=== PATIENT | female | born 1970 | race Caucasian/White ===

== ENCOUNTER → 2021-07-02 14:52 | Outpatient (CLI) | payer BC, SELFPAY ==
--- NOTE | ~2021-07-02 | MM_ITS ---
EXAMINATION: MM screening [facility] BI w saurabh HISTORY: Screening TECHNIQUE: Craniocaudal and mediolateral oblique 3-D tomosynthesis images were obtained and synthetic 2-D images were generated. CAD analysis was submitted and interpreted. COMPARISON: Comparison to multiple prior studies sequentially, with oldest reviewed study dated 11/2013. BREAST PARENCHYMAL COMPOSITION: There are scattered areas of fibroglandular density. FINDINGS: There is no evidence of suspicious mass, calcification, or architectural distortion to sugg est malignancy in either breast. There has been no suspicious interval change. IMPRESSION: 1. No mammographic evidence of malignancy. 2. Recommend routine screening mammography in one year. BI-RADS Category 1: Negative Reviewed, dictated and finalized at location A.
== END ==
PROVIDERS: PCP Nurse Practitioner Family; Visit Provider Obstetrics & Gynecology Gynecology
DX: Z12.31 Encounter for screening mammogram for malignant neoplasm of breast (principal)
CPT/HCPCS: 77063; 77067

== ENCOUNTER → 2021-08-10 08:49 | Outpatient (CLI) | payer BC, SELFPAY ==
--- NOTE | ~2021-08-10 | XR_ITS ---
EXAMINATION: XR chest 2V DATE: 08/10/2021 09:43 INDICATION: Shortness of breath TECHNIQUE: PA and lateral views of the chest are obtained. COMPARISON: None available FINDINGS: The lungs are free of acute opacities. There is no pleural effusion or pneumothorax. The ca rdiomediastinal silhouette is normal. There is mild thoracic spondylosis. IMPRESSION: 1. No acute cardiopulmonary abnormality. Reviewed, dictated and finalized at location A. UTIVE CHEF ASSISTANT
== END ==
PROVIDERS: PCP Nurse Practitioner Family; Visit Provider Nurse Practitioner Family
DX: R06.00 Dyspnea, unspecified (principal)
CPT/HCPCS: 71046

== ENCOUNTER → 2022-04-01 11:43 | Outpatient (CLI) | payer BC, SELFPAY ==
--- NOTE | ~2022-04-01 | CT_ITS ---
EXAMINATION: CT sinus wo con DATE: 04/01/2022 11:59 INDICATION: Chronic sinusitis TECHNIQUE: Computed tomography (CT) of the paranasal sinuses was performed without contrast. Iterativ e reconstruction technique was employed. Exam dose: 256.12 mGy-cm total exam DLP. COMPARISON: None FINDINGS: Very slight leftward bowing of the nasal septum. The nasal turbinates are prominent but symmetric in size. Bilateral intralamellar cell of the middle nasal turbinates. The ostiomeatal units are patent bilaterally. Minimal soft tissue thickening along the lower anterior wall of the right maxillary sinus. The paranasal sinuses are otherwise normally developed and aerate d. The mastoid air cells are well-developed and aerated bilaterally, just a few left mastoid air cells w ith fluid. IMPRESSION: Slight leftward bowing of nasal septum Prominent nasal turbinates; bilateral intralamellar cell of middle nasal turbinates Minimal new comparison thickening at the lower anterior wall of the right maxillary sinus Effusions of a very small minority of left mastoid air cells Reviewed, dictated and finalized at Location A. Reviewed, dictated and finalized at location B. IMPRESSION: Slight leftward bowing of nasal septum Prominent nasal turbinates; bilateral intralamellar cell of middle nasal turbin ates Minimal new comparison thickening at the lower anterior wall of the right maxil taty sinus Effusions of a very small minority of left mastoid air cells
== END ==
PROVIDERS: PCP Nurse Practitioner Family; Visit Provider Allergy & Immunology
DX: J32.9 Chronic sinusitis, unspecified (principal); J34.2 Deviated nasal septum; J34.3 Hypertrophy of nasal turbinates; H74.8X2 Other specified disorders of left middle ear and mastoid
CPT/HCPCS: 70486

== ENCOUNTER 2023-02-11 08:16 | Outpatient (CLI) | payer BC, SELFPAY ==
--- NOTE | 2023-02-11 08:46 | ECG_ITS ---
Measurements Intervals [place] Rate: 82 P: 31 OH: 174 QRS: 41 QRSD: 94 T: 37 QT: 355 QTc: 416 Interpretive Statements SINUS RHYTHM NO PREVIOUS ECG AVAILABLE FOR COMPARISON Electronically Signed On 02-11-2023 14:58:40 CDT by Anisha Rodriguez M.D.
[2023-02-11 09:03] LABS: Basophils Absolute Auto 0.1 K/mm3 (0.0-0.1); Basophils Percent Auto 0.8 % (0.2-1.2); Eosinophils Absolute Auto 0.1 K/mm3 (0-0.3); Eosinophils Percent Auto 0.7 % (0-4.4); Hematocrit 44.7 % (37.0-47.0); Hemoglobin 14.5 g/dL (12.0-15.0); Immature Granulocyte Absolute 0.03 K/mm3 (0.00-0.031); Immature Granulocyte Percent A 0.4 % (0-0.5); Lymphocytes Absolute Auto 1.39 K/mm3 (0.9-3.2); Lymphocytes Percent Auto 19.2 % (18.3-44.2); Mean Corpuscular HGB Conc 32.4 g/dl (32-36); Mean Corpuscular Hemoglobin 30.4 pg (26-34); Mean Corpuscular Volume 93.7 fl (80-100); Mean Platelet Volume 8.9 fl (7.4-10.4); Monocytes Absolute Auto 0.6 K/mm3 (0.1-0.6); Monocytes Percent Auto 8.6 % (2.6-8.5); Neutrophils Absolute Auto 5.1 K/mm3 (1.3-6.7); Neutrophils Percent Auto 70.3 % (45.5-73.1); Platelet Count Result 320 k/mm3 (150-375); Red Blood Count 4.77 M/mm3 (4.2-5.4); Red Cell Distribution Width 12.1 % (11.5-14.5); White Blood Count 7.3 K/mm3 (4.5-10.0)
[2023-02-11 09:17] LABS: Iron 102 ug/dL (37-170)
[2023-02-11 09:19] LABS: Alanine Aminotransferase 29 U/L (6-35); Albumin Level 4.3 g/dL (3.5-5.1); Alkaline Phosphatase 89 U/L (38-126); Anion Gap 4 mmol/L (8-16); Aspartate Amino Transferase 25 U/L (14-36); Bilirubin,Total 0.6 mg/dL (0.2-1.3); Blood Urea Nitrogen 11 mg/dL (7-17); Calcium 8.9 mg/dL (8.4-10.2); Carbon Dioxide 32 mmol/L (22-30); Chloride 100 mmol/L (98-107); Estimated Glomerular Filt Rate > 60; Glucose 89 mg/dL (65-110); Sodium 136 mmol/L (137-145)
[2023-02-11 09:47] LABS: Thyroid Stimulating Hormone Reflex 0.783 uIU/mL (0.465-4.68)
[2023-02-11 10:20] LABS: Folic Acid > 20.0 ng/mL (2.76->20)
== END 2023-02-11 08:17 | disposition home or self-care (01) ==
LOC: ANHLAB 08:20
PROVIDERS: PCP Nurse Practitioner Family; Visit Provider Nurse Practitioner Family
DX: F90.2 Attention-deficit hyperactivity disorder, combined type (principal); F41.1 Generalized anxiety disorder
CPT/HCPCS: 36415; 80053; 82607; 82746; 83540; 84443; 85025; 93005

== ENCOUNTER 2023-04-25 12:43 | Outpatient (CLI) | payer BC, SELFPAY ==
--- NOTE | ~2023-04-25 | CT_ITS ---
EXAMINATION: CT abdomen pelvis wo con DATE: 04/25/2023 13:16 INDICATION: Hematuria, intermittent right flank pain TECHNIQUE: Computed tomography (CT) of the abdomen and pelvis was performed without intravenous contr ast. Automated exposure control and iterative reconstruction technique were employed. Exam dose: 772 .98 mGy-cm total exam DLP. COMPARISON: 04/25/2023 KUB FINDINGS: The lung bases are clear of infiltrate or consolidation. Normal heart size. No pericardial or pleural effusion. Small sliding hiatal hernia. The liver, gallbladder, bile ducts, pancreas, pancreatic duct and spleen are unremarkable. Normal morphology of the adrenal glands. No renal mass lesion is evident on this limited noncontrast examination. No urinary tract calculus or hydroureteronephrosis. Retroverted uterus with IUD in expected position. Adnexal areas and urinary urinary bladder are unrem arkable. Normal caliber and minimal atherosclerotic calcification of the abdominal aorta. No intraperitoneal o r retroperitoneal or pelvic mass lesion or adenopathy or ascites. No evidence of appendicitis. Minimal colonic diverticulosis. No bowel obstruction, bowel wall thicken ing, pneumatosis or intraperitoneal free air is detected. Very small fat-containing umbilical hernia. No suspicious osteolytic or osteoblastic lesions. Degenerative change of the lower thoracic spine inc luding severe degenerative disease particularly at T10-11. Degenerative change at the apophyseal joints of the lumbar region with associated minimal grade 1 ant erolisthesis at L4-5. IMPRESSION: No renal mass lesion is evident on this limited noncontrast examination No urinary tract calculus or hydroureteronephrosis IUD within expected position in retroverted uterus Minimal colonic diverticulosis Small sliding hiatal hernia Reviewed, dictated and finalized at Location A. Reviewed, dictated and finalized at location A. IMPRESSION: No renal mass lesion is evident on this limited noncontrast examin ation No urinary tract calculus or hydroureteronephrosis IUD within expected position in retroverted uterus Minimal colonic diverticulosis Small sliding hiatal hernia
--- NOTE | ~2023-04-25 | XR_ITS ---
XR abdomen/kub 1V 04/25/2023 13:17 INDICATION: Hematuria. Right intermittent flank pain. TECHNIQUE: KUB COMPARISON: No prior studies for comparison. FINDINGS: Bowel gas pattern is normal. Moderate colonic fecal loading. There is no evidence of free a ir, mass, organomegaly, ascites or obstruction. No abnormal calculi are seen. The bones appear inta ct. There is an IUD in the pelvis. IMPRESSION: 1: No acute abdominal abnormality identified. Reviewed, dictated and finalized at location B.
== END 2023-04-25 12:44 | disposition home or self-care (01) ==
PROVIDERS: PCP Nurse Practitioner Family; Visit Provider Urology
DX: R31.29 Other microscopic hematuria (principal); Z97.5 Presence of (intrauterine) contraceptive device; K57.90 Diverticulosis of intestine, part unspecified, without perforation or abscess without bleeding; K44.9 Diaphragmatic hernia without obstruction or gangrene
CPT/HCPCS: 74018; 74176

== ENCOUNTER 2024-01-29 07:01 | Outpatient (CLI) | payer BC, SELFPAY ==
--- NOTE | ~2024-01-29 | MM_ITS ---
EXAMINATION: MM screening [facility] BI w saurabh HISTORY: Screening TECHNIQUE: Craniocaudal and mediolateral oblique 3-D tomosynthesis images were obtained and synthetic 2-D images were generated. CAD analysis was submitted and interpreted. COMPARISON: Comparison to multiple prior studies sequentially, with oldest reviewed study dated 03/10. BREAST PARENCHYMAL COMPOSITION: Not dense: There are scattered areas of fibroglandular density. FINDINGS: There is developing asymmetry in the upper outer quadrant of the right breast, middle third . Left breast is stable without evidence for malignancy. IMPRESSION: 1. Developing right breast asymmetry. 2. Additional mammographic views and possible breast ultrasound are recommended. BI-RADS Category 0: Incomplete: Needs additional imaging evaluation. Reviewed, dictated and finalized at location B. IMPRESSION: 1. Developing right breast asymmetry. 2. Additional mammographic views and possible breast ultrasound are recommended . BI-RADS Category 0: Incomplete: Needs additional imaging evaluation.
== END 2024-01-29 07:02 | disposition home or self-care (01) ==
LOC: CHSIMG 07:02
PROVIDERS: Visit Provider Obstetrics & Gynecology Gynecology
DX: Z12.31 Encounter for screening mammogram for malignant neoplasm of breast (principal)
CPT/HCPCS: 77063; 77067

== ENCOUNTER 2024-02-03 08:46 | Outpatient (CLI) | payer BC, SELFPAY ==
--- NOTE | ~2024-02-03 | MMUS_ITS ---
EXAMINATION: MM diagnostic rajesh RT w saurabh, US breast RT limited HISTORY: Follow-up right breast asymmetry TECHNIQUE: Additional 3-D tomosynthesis images of the right breast were performed and synthetic 2-D i mages were generated. CAD analysis was submitted and interpreted. High resolution Limited right breas t ultrasound was performed. COMPARISON: Comparison to multiple prior studies sequentially, with oldest reviewed study dated 03/10. BREAST PARENCHYMAL COMPOSITION: Not dense: There are scattered areas of fibroglandular density. FINDINGS: MAMMOGRAPHIC FINDINGS: There is a focal mass in the upper outer quadrant of the right breast with suggestion of central luce ncy, most likely benign intramammary lymph node. This is not definitely visualized on medial lateral or MLO views. ULTRASOUND: Limited right breast ultrasound: Normal heterogeneous echotexture without focal solid or cystic mass. No findings to correspond to the mammographic abnormality. IMPRESSION: 1. Probable benign right breast mass, upper outer quadrant. 2. Recommend 6 month follow-up diagnostic right mammogram BI-RADS category 3, probably benign findings. Reviewed, dictated and finalized at location B. IMPRESSION: 1. Probable benign right breast mass, upper outer quadrant. 2. Recommend 6 month follow-up diagnostic right mammogram BI-RADS category 3, probably benign findings.
== END 2024-02-03 08:47 | disposition home or self-care (01) ==
LOC: CHSIMG 08:48
PROVIDERS: PCP Family Medicine; Visit Provider Obstetrics & Gynecology Gynecology
DX: R92.8 Other abnormal and inconclusive findings on diagnostic imaging of breast (principal)
CPT/HCPCS: 76642; 77061; 77065; G0279

== ENCOUNTER 2024-08-23 08:52 | Outpatient (CLI) | payer BC, SELFPAY ==
--- NOTE | ~2024-08-23 | MMUS_ITS ---
EXAMINATION TYPE: MM diagnostic rajesh RT w saurabh, US breast RT limited COMPARISON: 02/03/2024 and dating back to 03/10/2017 REASON FOR STUDY: UOQ-R BREAST MASS TECHNIQUE: Bilateral mediolateral oblique and craniocaudal views were obtained digitally with 3-D ma mmogram (digital breast tomosynthesis) with CAD. Computer-aided detection was utilized in evaluation of this examination. BREAST PARENCHYMAL COMPOSITION:Dense: The breasts are heterogeneously dense, which may obscure small masses. FINDINGS: The asymmetry within the upper outer quadrant of the right breast approximately 8 to 9 cm from the ni pple persists on repeat examination for which focused ultrasound will be performed. There is no dominant mass, architectural distortion or suspicious micro-calcifications. TECHNIQUE: Sonographic evaluation of the upper outer right breast was performed. FINDINGS: There is a heterogenous background echotexture. Sonographic evaluation demonstrates benign fibroglandular elements without a cystic or solid lesion o f concern. IMPRESSION: No mammographic, tomographic or sonographic evidence to suggest malignancy. BI-RADS CATEGORY: BI-RADS Category 2: Benign findings. RECOMMENDATION: Resumption of yearly bilateral mammography is recommended. Reviewed, dictated and finalized at location A. AND DIE SUPERVISOR IMPRESSION: No mammographic, tomographic or sonographic evidence to suggest malignancy. BI-RADS CATEGORY: BI-RADS Category 2: Benign findings. RECOMMENDATION: Resumption of yearly bilateral mammography is recommended.
== END 2024-08-23 08:53 | disposition home or self-care (01) ==
PROVIDERS: PCP Family Medicine; Visit Provider Obstetrics & Gynecology Gynecology
DX: N63.11 Unspecified lump in the right breast, upper outer quadrant (principal); R92.8 Other abnormal and inconclusive findings on diagnostic imaging of breast
CPT/HCPCS: 76642; 77061; 77065; G0279

== ENCOUNTER 2025-08-23 11:38 | Outpatient (CLI) | payer BC, SELFPAY ==
--- NOTE | ~2025-08-23 | MM_ITS ---
EXAMINATION: MM screening rajesh BI w saurabh HISTORY: Screening. TECHNIQUE: Craniocaudal and mediolateral oblique 3-D tomosynthesis images were obtained and synthetic 2-D images were generated. CAD analysis was submitted and interpreted. COMPARISON: 2023 and 2020 BREAST PARENCHYMAL COMPOSITION: Dense: The breasts are heterogeneously dense, which may obscure small masses. FINDINGS: No suspicious masses are seen. There are no suspicious calcifications. No unexplained architectural distortion is seen. There are no skin or nipple abnormalities identified. There is no adenopathy seen on the images submitted. IMPRESSION: No mammographic evidence to suggest malignancy is seen. The patient may return to screening mammography as per ACR guidelines. BI-RADS 1 - Negative. Reviewed, dictated and finalized at location C. DER HAND
--- OUTSIDE RECORDS SUMMARY | 2025-08-23 11:56 | XMS_ITS | Clinical Summary ---
Author Organization [facility] Address [address] [place] [address] Care Team Providers Care Behavioral Health Technician Name Role Phone Samantha Villegas MD Primary Care Provider + Allergies Active Allergy Reactions Criticality Noted Date Comments Cephalexin Itching 09/02/2024 Medications busPIRone (BUSPAR) 10 MG tablet Take 1 tablet (10 mg total) by mouth 2 (two) times daily. Active lamoTRIgine (LAMICTAL) 25 MG tablet Take 1 tablet (25 mg total) by mouth daily. Active lisdexamfetamine (VYVANSE) 50 MG capsule Take 1 capsule (50 mg total) by mouth every morning. Active ARIPiprazole (ABILIFY) 5 MG tablet Take 1 tablet (5 mg total) by mouth daily. Active traZODone (DESYREL) 50 MG tablet Take 1 tablet (50 mg total) by mouth nightly at bedtime. Active citalopram (CELEXA) 40 MG tablet Take 1 tablet (40 mg total) by mouth daily. Active ASHWAGANDHA OR Take 600 mg by mouth 2 (two) times a day. Active Multiple Vitamins-Minerals (ONE-A-DAY WOMENS OR) Take 1 tablet by mouth daily. Active valACYclovir (VALTREX) 500 MG tabletIndications:H erpes simplex vulvovaginitis Take 1 tablet (500 mg total) by mouth daily. 90 tablet 3 5 09/02/19 26 Active fluticasone propionate (FLONASE) 50 MCG/ACT nasal sprayIndications:Dy sfunction of both eustachian tubes 2 sprays by Each Nostril route daily. 15.8 mL 5 Active cetirizine (ZYRTEC) 10 MG tabletIndications:S easonal allergic rhinitis, unspecified trigger Take 1 tablet (10 mg total) by mouth daily. 90 tablet 3 5 02/16/20 26 Active albuterol sulfate HFA 108 (90 Base) MCG/ACT inhalerIndications: Mild intermittent asthma without complication (HHS/HCC) Inhale 2 puffs into the lungs every 6 (six) hours as needed. 18 g 1 5 Active Active Problems Problem Noted Date Diagnosed Date Mild intermittent asthma 09/02/2024 Overview (09/02/2024): Takes albuterol as needed especially when ill or with cold weather or exercise. Assessment & Plan (09/02/2024 11:10 AM OFFICE MESSENGER): Chronic and controlled. Encouraged Prevnar vaccination and she declines. Continue albuterol as needed. Spinal stenosis in cervical region 09/02/2024 Genital herpes simplex 09/02/2024 Overview (09/02/2024): Takes valtrex ppx. Assessment & Plan (09/02/2024 11:10 AM OFFICE MESSENGER): Chronic and controlled. Continue Valtrex. Raynaud disease 09/02/2024 Assessment & Plan (09/02/2024 11:10 AM OFFICE MESSENGER): New dx. discussed option of medication but patient feels that symptoms are manageable without this intervention. Hyperlipidemia 03/16/2024 Attention deficit hyperactiv ity disorder, predominantly inattentive type 02/23/2024 Overview (09/02/2024): Sees [facility]. Seasonal allergic rhinitis 11/27/2022 Overview (09/02/2024): Symptoms well-managed with Zyrtec. Assessment & Plan (09/02/2024 11:11 AM OFFICE MESSENGER): Chronic and controlled. Continue Zyrtec. Chronic insomnia 06/28/2021 JOSEPHINE (generalized anxiety disorder) 02/16/2016 Overview (09/02/2024): Managed by psychiatry. Encounters Date Type Department Care Team Description 06/22/2025 Telephone [facility] [address] [place] [address] Samantha Villegas MD Medication Request 06/20/2025 Telephone [facility] [address] [place] [address] Samantha Villegas MD Information 06/16/2025 12:40 PM CDT Office Visit [facility] [address] [place] [address] Samantha Villegas MD URI (Patient has been sick since last . Fever the first couple of days and now she has persistent drainage and cough. Feels really tired, worn out, and headache. ) 06/16/2025 Travel from Last 3 Months Immunizations Immunization Administration Dates Next Due COVID-19 Vaccine (Generic) 08/20/2021 Influenza (Generic) 06/22/2024,06/24/2017,2013 Influenza Adult (Generic) 06/23/2023,08/2022,06/13/2021,06/16/2020,06/17,06/11/2019,07/06/2018,06/22/2018,06/07/2016 Tdap (Generic) 04/10/2016 Family History Medical History Relation Comments Esophageal cancer Father Stroke Maternal Grandmother No Known Problems Mother Breast Cancer Paternal Grandmother Scleroderma Sister No Known Problems Son Relation Status Comments Father Maternal Grandmother Mother Alive Paternal Grandmother Sister Alive Son Alive Social History Tobacco Use Types Packs/Day Years Used Date Smoking Tobacco: Never Passive Smoke Exposure: Never Smokeless Tobacco: Never Tobacco Cessation:Counseling Given: Not Answered Alcohol Use Standard Drinks/Week Comments Yes 0 (1 standard drink = 0.6 oz pur e alcohol) occ PHQ-2 Answer Date Recorded Patient Health Questionnaire-2 Score 0 02/15/2025 Comments No Sex and Gender Information Value Date Recorded Sex Assigned at Female 10/14/2024 7:56 AM OFFICE MESSENGER Legal Sex Female 4:05 PM CDT Gender Identity Female 10/14/2024 7:56 AM OFFICE MESSENGER Sexual Orientation Straight 10/14/2024 7: 56 AM OFFICE MESSENGER Last Filed Vital Signs Vital Sign Reading Time Taken Comments Blood Pressure 128/80 06/20/2025 3:22 PM CDT Pulse 66 06/16/2025 12:32 PM CDT Temperature 36.9 C (98.4 F) 06/16/2025 12:32 PM CDT Respiratory Rate 20 06/16/2025 12:32 PM CDT Oxygen Saturation 100% 06/16/2025 12:32 PM CDT Inhaled Oxygen Concentration - - Weight 85.3 kg (188 lb) 06/16/2025 12:32 PM CDT Height 167.6 cm (5' 6) 06/16/2025 12:32 PM CDT Body Mass Index 30.34 06/16/2025 12:32 PM CDT Plan of Treatment Health Maintenance Due Date Last Done Comments Hepatitis C 1990 Hepatitis B Vaccines (1 of 3 - 19+ 3-dose series) 1991 Pneumococcal Vaccine: 50+ Years (1 of 2 - PCV) 1991 Cervical Cancer Screening Pap with HPV Testing (Age 30 to 64) Every 5 Years 2002 Zoster Vaccines (1 of 2) 2022 COVID-19 Vaccine ( season) 2025 08/20/2021, 08/20/2021, 11/11/2020, Additional history exists Influenza Adult (#1) 2025 06/22/2024, 06/23/2023, 06/14/2022, Additional history exists Annual Physical 02/15/2026 02/15/2025 DTaP, Tdap and Td Vaccines (2 - Td or Tdap) 04/10/2026 04/10/2016 Mammogram Screening 08/23/2026 08/23/2024, 08/23/2024, 02/03/2024 Cervical Cancer Screening Pap Smear (Age 30 to 64) Every 3 Years 01/28/2027 01/29/2024 Cervical Cancer Screening with HPV 01/28/2027 Colorectal Cancer Screening FIT-DNA (3 Years) 02/18/2027 02/19/2024, 02/16/2024 PHQ-2 (Physician [place]) Completed 02/15/2025 Hepatitis A Vaccines Aged Out No long er eligible based on patient's age to complete this topic Meningococcal B Vaccine Aged Out No l onger eligible based on patient's age to complete this topic Meningococcal Vaccine Aged Out No anne caryl eligible based on patient's age to complete this topic RSV Immunizations Under 20 Months Aged Out No longer eligible based on patient's age to complete this topic Procedures Procedure Name Priority Date/Time Associated Diagnosis Comments MAMMOGRAM GENERIC (SCAN ORDER) 08/23/2024 COLOGUARD (SCAN ORDER) Routine 02/19/2024 OUTSIDE CYTOPATH CERV/VAG IN TERPRET (PAP) (SCAN ORDER) 01/29/2024 from Last 3 Months or Most Recently Relevant to Health Maintenance Results * MAMMOGRAM GENERIC (SCAN ORDER) (08/23/2024) Anatomical Region Laterality Modality Other 08/23/2024 [facility] Scanned SCANNING Final Resu lt * COLOGUARD (02/19/2024) STOOL 02/19/2024 [facility] Scanned SCANNING Final Resu lt [facility] ONBASE * PAP SMEAR (SCAN ORDER) (01/29/2024) 01/29/2024 [facility] Scanned SCANNING Final Resu lt from Last 3 Months or Most Recently Relevant to Health Maintenance Insurance [employer] Advance Directives Documents on File Type Date Recorded Patient Leadership Development Consultant Expl anation Power of Physician President 03/07/2025 12:05 PM Care Teams Behavioral Health Technician Relationship Specialty Start Date End Date Samantha Villegas MD [address] [place] [id number] PCP - General FAMILY PRACTICE 09/02/24
--- OUTSIDE RECORDS SUMMARY | 2025-08-23 11:56 | XMS_ITS | Patient Health Record ---
Author Organization [facility] Address [address] [place] [address] Care Team Providers Care X Ray Equipment Servicer Name Role Phone Radha Fong Unavailable [phone] Reason For Referral No Information Medications Medication SIG (Take, Route, Frequency, Duration) Notes Start Date End Date Status clomiPRAMINE HCl 25 MG Capsule Oral 10/14/2022 Active Citalopram Hydrobromide 40 MG Tablet Oral 10/14/2022 Active valACYclovir HCl 500 MG Tablet Oral 10/14/2022 Active traZODone HCl 50 MG Tablet Oral 10/14/2022 Active Loratadine 10 MG Tablet Oral 10/14/2022 Active ARIPiprazole 10 MG Tablet Oral 10/14/2022 Active busPIRone HCl 10 MG Tablet Oral 10/14/2022 Active ALPRAZolam 0.5 MG Tablet Oral 10/14/2022 Active ProAir HFA 108 (90 Base) MCG/ACT Aerosol Solution Inhalation 10/14/2022 Act bernie Immunizations Vaccine Route Administration Date Status Comme nts Influenza, unspecified formulation Unknown 06/03/2022 A dministered COVID-19 (SARS-COV-2) vaccin e, unspecified Unknown 09/01/2020 Administered Social History Social History Additional Details Category Social Info Options Details Migrated Social History Migrated Social History Alcohol Intake: Occasional 10/14/2022,Tobacco Years: Never smoker 09/09/2022 Plan Of Treatment No Information Insurance Providers Payer Name Payer Address Payer Phone Subscriber Number Group Number Insured Name Patient Relationship to Insured Coverage Start Date Coverage End Date [employer] [employer] [address] [place] [address] [id number] TOYA REED Self - patient is the insured Medical (General) History Surgical History Surgery Date(Month/Year) Other 11/11/2006
== END 2025-08-23 11:39 | disposition home or self-care (01) ==
PROVIDERS: PCP Student in an Organized Health Care Education/Training Program; Visit Provider Obstetrics & Gynecology Gynecology
DX: Z12.31 Encounter for screening mammogram for malignant neoplasm of breast (principal)
CPT/HCPCS: 77063; 77067